=== PATIENT | male | born 1935 | race Hispanic/Latino ===

== ENCOUNTER 2016-09-04 22:46 | Observation (INO) | payer MEDICARE, OTHER ==
[2016-09-04 22:47] VITALS: BMI 25.4
[2016-09-04] MEDS ORDERED: Aspirin 325 mg EC Tablets PO STA (23:28)
--- NOTE | 2016-09-04 23:30 | C.PDOC ---
History Of Present Illness 81 year old male was brought to the ED by EMS with complaints of chest pain, SOB , and one episode of vomiting. Patient describes, through his neighbor's translation, that he felt fine all day but prior to arrival he bent to grab something in the refrigerator and developed a sudden feeling as though a ball was in the left side of his chest leading to a feeling of pressure in his chest. Patient states symptoms resolved upon arrival and has never had similar symptoms before. He denies any cough, fever, or any other complaints at this time. 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 denies: Diaphoresis, Syncope Recent travel outside of the [place]: No Past Medical History Reviewed: Historical Data, Nursing Documentation, Vital Signs Vital Signs: Last Vital Signs Temp 97.9 F 09/04/16 22:57 Pulse 68 09/05/16 03:21 Resp 16 09/05/16 03:21 BP 145/72 09/05/16 03:21 Pulse Ox 98 09/05/16 03:21 - Medical History PMH: Arthritis, Asthma, Fractures (LEFT LEG) - [facility] Procedures COLONOSCOPY (08/01/14) Family History: States: No Known Family Hx - Social History Hx Alcohol Use: Yes Hx Substance Use: No Review Of Systems Constitutional: Negative for: Fever, Chills, Sweats Eyes: Negative for: Vision Change Cardiovascular: Positive for: Chest Pain. Negative for: Palpitations Respiratory: Positive for: Shortness of Breath. Negative for: Cough Gastrointestinal: Positive for: Vomiting. Negative for: Nausea, Abdominal Pain , Diarrhea Neurological: Negative for: Headache, Dizziness Physical Exam - Physical Exam Appears: Non-toxic, No Acute Distress Skin: Warm, Dry Head: Atraumatic Eye(s): bilateral: PERRL, EOMI Oral Mucosa: Moist Neck: Supple Chest: Symmetrical, No Deformity Cardiovascular: Rhythm Regular Respiratory: No Rales, No Rhonchi, No Stridor, No Wheezing Gastrointestinal/Abdominal: Soft, No Tenderness, No Distention, No Guarding, No Rebound Extremity: Normal ROM, No Tenderness Neurological/Psych: Oriented x3, Normal Speech, Normal Cognition ED Course And Treatment - Laboratory Results Result Diagrams: 09/04/16 23:35 09/04/16 23:35 ECG: Interpreted By Me ECG Rhythm: Sinus Rhythm, R BBB O2 Sat by Pulse Oximetry: 99 (room air ) - Radiology CXR: Interpreted by Me, Viewed By Me CXR Interpretation: No: Infiltrates Medical Decision Making Medical Decision Making: Pt treated with asa, and continued pain free in the ED In view of symptoms age pt will need observation Discussed with dr Garsia who agrees with plan Disposition - Disposition Disposition: HOSPITALIZED Disposition Time: 00:47 Condition: FAIR - Clinical Impression Clinical Impression: Chest pain - Scribe Statement The provider has reviewed the documentation as recorded by the Scribe Ammy Dillard All medical record entries made by the Scribe were at my direction and personally dictated by me. I have reviewed the chart and agree that the record accurately reflects my personal performance of the history, physical exam, medical decision making, and the department course for this patient. I have also personally directed, reviewed, and agree with the discharge instructions and disposition.
[2016-09-04] MEDS ORDERED: Aspirin 325 mg EC Tablets PO ONE (23:33)
[2016-09-04 23:38] LABS: BASO # 0.1 K/uL (0.0-0.2); BASO % 2.1 % (0.0-2.0); EOS # 0.4 K/uL (0.0-0.7); HEMATOCRIT 34.7 % (35.0-51.0); LYMPH # 1.4 K/uL (1.0-4.3); LYMPH % 34.2 % (20.0-40.0); MEAN CORPUSCULAR HEMOGLOBIN 30.5 pg (27.0-31.0); MEAN CORPUSCULAR HGB CONC 33.1 g/dL (33.0-37.0); MEAN PLATELET VOLUME 7.7 fL (7.2-11.7); MONO # 0.5 K/uL (0.0-0.8); MONO % 12.2 % (0.0-10.0); NRBC % 0.1 % (0.0-2.0); RED CELL DISTRIBUTION WIDTH 14.9 % (11.5-14.5)
[2016-09-04 23:48] LABS: CHLORIDE 99 mmol/L (98-107); SODIUM 137 mmol/L (132-148)
[2016-09-04 23:49] LABS: POTASSIUM 3.9 mmol/L (3.6-5.2)
[2016-09-04 23:51] LABS: ALB/GLOB RATIO 1.2 (1.0-2.1); ALKALINE PHOSPHATASE 73 U/L (38-126); ALT/SGPT 27 U/L (21-72); AST/SGOT 32 U/L (17-59); BILIRUBIN,TOTAL 1.2 mg/dL (0.2-1.3); BLOOD UREA NITROGEN 16 mg/dL (9-20); CARBON DIOXIDE 29 mmol/L (22-30); GFR AFRICAN-AMERICAN > 60; GLUCOSE,RANDOM 97 mg/dL (75-110)
--- NOTE | 2016-09-05 01:26 | CP.PCM.HP ---
<Vargas Falcon - Last Filed: 09/05/16 01:22> History of Present Illness - History of Present Illness History of Present Illness: This is a 81 yo male with past medical hx of HTN presenting with chest pain x 3 hrs. pain began at 1020 pm. pt was in the refrigerator fishing for something. He got on his knees and was looking inside for something when all of a sudden started developing chest pain. He has never felt this way before. He also developed some shortness of breath. He describes the sensation as "gripping." The chest pain had resolved at time of evaluation. It lasted 15 minutes in a very strong intensity then gradually faded away. Nothing made it better or worse. He took no meds for it at home. He denies fevers, chills, vomiting, diarrhea. He does report non productive cough. He denies hematuria, bloody BMs. PMH: HTN, prostatitis PSH: prostate sx, unknown leg surgery Allergies: NKDA FH: Father- - [place] Social hx: denies smoking, drinking, drug use. Born in [facility]. Lives with , daughter, grandson. Present on Admission - Present on Admission Any Indicators Present on Admission: No History of DVT/PE: No History of Uncontrolled Diabetes: No Urinary Catheter: No Decubitus Ulcer Present: No Review of Systems - Review of Systems All systems: reviewed and no additional remarkable complaints except Review of Systems: Negative except as per HPI. Past Patient History - Infectious Disease Hx of Infectious Diseases: None - Tetanus Immunizations Tetanus Immunization: Unknown - Past Medical History & Family History Past Medical History?: Yes Pertinent Family History: FH of [place] - Past Social History Smoking Status: Never Smoked Chewing Tobacco Use: No Cigar Use: No Alcohol: None Drugs: Denies Home Situation {Lives}: With Family Domestic Violence: Negative - PULMONARY Hx Asthma: Yes - HEENT Hx HEENT Problems: Yes (GLASSES) Hx Cataracts: Yes - MUSCULOSKELETAL/RHEUMATOLOGICAL Hx Arthritis: Yes Hx Fractures: Yes (LEFT LEG) - GENITOURINARY/GYNECOLOGICAL Hx Genitourinary Disorders: Yes Hx Prostate Problems: Yes (BPH/RETENTION) - PSYCHIATRIC Hx Substance Use: No - SURGICAL HISTORY Hx Surgeries: Yes Hx Open Reduction Internal Fixation: Yes (FX LEFT LEG AT AGE 14) Other/Comment: GREENLIGHT TUR - ANESTHESIA Hx Anesthesia: Yes Hx Anesthesia Reactions: No Hx Malignant Hyperthermia: No Meds Allergies/Adverse Reactions: Allergies Allergy/AdvReac Type Severity Reaction Status Date / Time No Known Allergies Allergy Verified 09/11/15 07:51 Physical Exam - Constitutional Appears: Non-toxic, No Acute Distress - Head Exam Head Exam: ATRAUMATIC, NORMAL INSPECTION, NORMOCEPHALIC - Eye Exam Eye Exam: EOMI - ENT Exam ENT Exam: Mucous Membranes Moist - Neck Exam Neck exam: Positive for: Full Rom, Normal Inspection - Respiratory Exam Respiratory Exam: Decreased Breath Sounds. absent: Respiratory Distress - Cardiovascular Exam Cardiovascular Exam: REGULAR RHYTHM, +S1, +S2 - GI/Abdominal Exam GI & Abdominal Exam: Normal Bowel Sounds, Soft. absent: Tenderness - Extremities Exam Extremities exam: Positive for: full ROM, normal inspection - Back Exam Back exam: NORMAL INSPECTION - Neurological Exam Neurological exam: Alert, Oriented x3 - Psychiatric Exam Psychiatric exam: Normal Affect, Normal Mood - Skin Skin Exam: Dry, Intact, Normal Color, Warm Results - Vital Signs Recent Vital Signs: Last Vital Signs Temp 97.9 F 09/04/16 22:57 Pulse 72 09/04/16 22:57 Resp 20 09/04/16 22:57 BP 153/80 H 09/04/16 22:57 Pulse Ox 99 09/05/16 01:11 - Labs Result Diagrams: 09/04/16 23:35 09/04/16 23:35 Labs: Laboratory Results - last 24 hr 09/04/16 09/04/16 23:35 23:35 WBC 4.0 L RBC 3.77 L Hgb 11.5 L Hct 34.7 L MCV 92.0 MCH 30.5 MCHC 33.1 RDW 14.9 H Plt Count 215 MPV 7.7 Neut % (Auto) 42.5 L Lymph % (Auto) 34.2 [place] % (Auto) 12.2 H Eos % (Auto) 9.0 H Baso % (Auto) 2.1 H Neut # 1.7 L Lymph # 1.4 [place] # 0.5 Eos # 0.4 Baso # 0.1 Sodium 137 Potassium 3.9 Chloride 99 Carbon Dioxide 29 Anion Gap 14 BUN 16 Creatinine 0.9 Est GFR ( Amer) > 60 Est GFR (Non-Af Amer) > 60 Random Glucose 97 Calcium 8.0 L Total Bilirubin 1.2 AST 32 ALT 27 Alkaline Phosphatase 73 Troponin I < 0.0120 Total Protein 7.0 Albumin 3.8 Globulin 3.1 Albumin/Globulin Ratio 1.2 Assessment & Plan - Assessment and Plan (Free Text) Assessment: This is a 81 yo male with past medical hx of HTN and prostatitis presenting with chest pain 1. Chest pain, rule out ACS -EKG shows NSR, right bundle branch block -cardiology. Dr. Underwood. recs appreciated. -trops x 3 -low dose lopressor 25 mg PO BID -crestor 5 mg PO HS -asa 81 mg PO HS -HGB a1C -Lipid panel -echo pending 2. Hx of HTN -will start low dose betablocker -echo pending 3. hx of prostatitis -continue to monitor 4. GI/DVT ppx -protonix daily -SCDs discussed with hospitalist <Antolin Rubalcava - Last Filed: 09/05/16 06:40> Results - Vital Signs Recent Vital Signs: Last Vital Signs Temp 97.9 F 09/04/16 22:57 Pulse 68 09/05/16 03:21 Resp 16 09/05/16 03:21 BP 145/72 09/05/16 03:21 Pulse Ox 99 09/05/16 03:48 - Labs Result Diagrams: 09/04/16 23:35 09/04/16 23:35 Labs: Laboratory Results - last 24 hr 09/05/16 09/05/16 04:37 04:37 Hemoglobin A1c 5.8 Troponin I < 0.0120 Triglycerides 91 Cholesterol 180 LDL Cholesterol Direct 133 H HDL Cholesterol 31 Assessment & Plan - Date & Time Date: 09/05/16 (I have seen and examined the patient. I agree with the findings and plan of care as documented by Dr. Falcon. Patient with chest pain. History of hypertension. ROMIx3 with EKG. Aspirin and Statin. Metoprolol. 2D Echo. Consult to Cardio. Monitor on tele for acute changes. Check for additional CAD risk factors.) Time: 06:38 Attending/Attestation - Attestation I have personally seen and examined this patient.: Yes I have fully participated in the care of the patient.: Yes I have reviewed all pertinent clinical information: Yes
[2016-09-05 03:22] VITALS: RESP 16
[2016-09-05 06:09] LABS: CHOLESTEROL 180 mg/dL (0-199)
[2016-09-05 08:49] VITALS: BP 149/71
--- NOTE | 2016-09-05 09:00 | RAD ---
PROCEDURE: CHEST RADIOGRAPH, 1 VIEW. Portable semi erect study 23:34. HISTORY: chest pain COMPARISON: None available. FINDINGS: LUNGS: Clear. PLEURA: No pneumothorax or pleural fluid seen. CARDIOVASCULAR: No radiographic findings to suggest acute or significant cardiovascular disease. All OSSEOUS STRUCTURES: No significant abnormalities. VISUALIZED UPPER ABDOMEN: Normal. OTHER FINDINGS: None. IMPRESSION: No active disease. Concordant results with the preliminary interpretation rendered by the emergency department physician procedure.
--- NOTE | 2016-09-05 11:22 | CP.PCM.PN ---
<Shira Abreu - Last Filed: 09/05/16 13:19> Subjective - Date & Time of Evaluation Date of Evaluation: 09/05/16 Time of Evaluation: 08:00 - Subjective Subjective: Medicine Progress Note- Dr. Wells's Service: Patient seen and examined at bedside this AM. Patient reports left chest pain has resolved since last night. As per patient he was well last night. He became SOB and developed "asphyxiating" chest pain when he bent down to get something in the refrigerator. Pain was 10/[address] On his way to the hospital he began to feel nauseous and developed a cough. No diaphoresis, no dysuria, hematuria, feves, chills, palpitations. Patient sees Dr. Rust as outpatient for BPH and urinary retention. Take Doxazosin 2 mg PO daily as per Dr. Rust. Objective - Vital Signs/Intake and Output Vital Signs (last 24 hours): Temp Pulse Resp BP Pulse Ox 97.9 F 68 16 149/71 99 09/04/16 22:57 09/05/16 03:21 09/05/16 03:21 09/05/16 08:48 09/05/16 03:48 - Medications Medications: Current Medications Aspirin (Aspirin Chewable) 81 mg PO DAILY [facility] Last Admin: 09/05/16 11:19 Dose: 81 mg Metoprolol Tartrate (Lopressor) 25 mg PO BIDCC [facility] Last Admin: 09/05/16 08:48 Dose: 25 mg Pantoprazole Sodium (Protonix Inj) 40 mg IVP DAILY [facility] Last Admin: 09/05/16 11:19 Dose: 40 mg Rosuvastatin Calcium (Crestor) 5 mg PO [facility] - Constitutional Appears: No Acute Distress - Head Exam Head Exam: NORMAL INSPECTION, NORMOCEPHALIC - Eye Exam Eye Exam: EOMI, Normal appearance - ENT Exam ENT Exam: Mucous Membranes Moist - Neck Exam Neck Exam: Full ROM - Respiratory Exam Respiratory Exam: Clear to Ausculation Bilateral, NORMAL BREATHING PATTERN - Cardiovascular Exam Cardiovascular Exam: REGULAR RHYTHM, +S1, +S2 - GI/Abdominal Exam GI & Abdominal Exam: Soft. absent: Distended, Tenderness - Extremities Exam Extremities Exam: Full ROM, Normal Inspection - Back Exam Back Exam: NORMAL INSPECTION - Neurological Exam Neurological Exam: Alert, Awake, Oriented x3 - Psychiatric Exam Psychiatric exam: Normal Affect, Normal Mood - Skin Skin Exam: Dry, Normal Color, Warm Assessment and Plan (1) Chest pain Assessment & Plan: EKG on admission 09/04/16 showed NSR 69 bpm, RBBB. EKG (repeat 09/05/16) showed Sinus Mike 55 bpm, RBBB. Cardiology consulted- Dr. Underwood- help appreciated. Trops negative x 3 * D/C Lopressor 25 mg PO BID for HR 55-60. * Crestor 5 mg PO HS * ASA 81 mg PO daily Hgb A1C: 5.8 FLP: T, Chol 180, LDL 133, HDL 31. F/U 2D ECHO Status: Acute (2) BPH (benign prostatic hyperplasia) Assessment & Plan: Resume home med Cardura 2 mg PO daily. Hx of urinary retention as per chart. Follows with Dr. Rust as outpatient. Status: Acute (3) HTN (hypertension) Assessment & Plan: As per chart. However, BP stable off meds. Will stop BB for HR of 55-60. Patient currently on Cardura for BPH. Will add medications as needed. Status: Acute (4) Hyperlipemia Assessment & Plan: FLP: T, Chol 180, LDL 133, HDL 31. * Crestor 5 mg PO HS Status: Acute (5) Prophylactic measure Assessment & Plan: Protonic 10 mg IVP daily Lovenox 40 mg SC daily SCDs Status: Acute <Rafael Wells - Last Filed: 09/05/16 14:42> Objective - Vital Signs/Intake and Output Vital Signs (last 24 hours): Temp Pulse Resp BP Pulse Ox 97.5 F L 63 16 149/71 95 09/05/16 07:30 09/05/16 07:30 09/05/16 07:30 09/05/16 08:48 09/05/16 07:30 - Medications Medications: Current Medications Aspirin (Aspirin Chewable) 81 mg PO DAILY [facility] Last Admin: 09/05/16 11:19 Dose: 81 mg Doxazosin Mesylate (Cardura) 2 mg PO DAILY [facility] Last Admin: 09/05/16 14:12 Dose: 2 mg Enoxaparin Sodium (Lovenox) 40 mg SC DAILY [facility] Pantoprazole Sodium (Protonix Inj) 40 mg IVP DAILY [facility] Last Admin: 09/05/16 11:19 Dose: 40 mg Pneumococcal Polyvalent Vaccine (Pneumovax 23 Vaccine) 0.5 ml IM .ONCE ONE Stop: 09/06/16 10:01 Rosuvastatin Calcium (Crestor) 5 mg PO [facility] Attending/Attestation - Attestation I have personally seen and examined this patient.: Yes I have fully participated in the care of the patient.: Yes I have reviewed all pertinent clinical information, including history, physical exam and plan: Yes Notes (Text): 09/05/16 14:41 Patient was seen and examined at bedside. Denies any chest pain at this time Troponins negative. Echo pending. Follow up cardiogy recommendations I reviewed the chart, labs imaging studies and netsuite consultant notes. I agree with above history and physical and assessment/plan by the resident.
[2016-09-05 12:56] VITALS: TEMP 97.5; O2SAT 95
--- NOTE | 2016-09-05 16:30 | CP.PCM.CON ---
History of Present Illness - History of Present Illness History of Present Illness: Elderly malw ith history of hypertension who came last night with cheat pain. At this time resting comfortably without any chest pain or shortness of breath. Past Patient History - Infectious Disease Hx of Infectious Diseases: None - Tetanus Immunizations Tetanus Immunization: Unknown - Past Medical History & Family History Past Medical History?: Yes - Past Social History Smoking Status: Never Smoked - CARDIAC Hx Cardiac Disorders: Yes Hx Hypertension: Yes - PULMONARY Hx Asthma: Yes - NEUROLOGICAL Hx Neurological Disorder: No - HEENT Hx HEENT Problems: Yes (GLASSES) Hx Cataracts: Yes - RENAL Hx Chronic Kidney Disease: No - ENDOCRINE/METABOLIC Hx Endocrine Disorders: No - HEMATOLOGICAL/ONCOLOGICAL Hx Blood Disorders: No - INTEGUMENTARY Hx Dermatological Problems: No - MUSCULOSKELETAL/RHEUMATOLOGICAL Hx Arthritis: Yes Hx Falls: No Hx Fractures: Yes (LEFT LEG) - GASTROINTESTINAL Hx Gastrointestinal Disorders: No - GENITOURINARY/GYNECOLOGICAL Hx Genitourinary Disorders: Yes Hx Prostate Problems: Yes (BPH/RETENTION) - PSYCHIATRIC Hx Psychophysiologic Disorder: No Hx Substance Use: No - SURGICAL HISTORY Hx Surgeries: Yes Hx Open Reduction Internal Fixation: Yes (FX LEFT LEG AT AGE 14) Other/Comment: GREENLIGHT TUR - ANESTHESIA Hx Anesthesia: Yes Hx Anesthesia Reactions: No Hx Malignant Hyperthermia: No Meds Allergies/Adverse Reactions: Allergies Allergy/AdvReac Type Severity Reaction Status Date / Time No Known Allergies Allergy Verified 09/11/15 07:51 - Medications Medications: Current Medications Aspirin (Aspirin Chewable) 81 mg PO DAILY [facility] Last Admin: 09/05/16 11:19 Dose: 81 mg Doxazosin Mesylate (Cardura) 2 mg PO DAILY [facility] Last Admin: 09/05/16 14:12 Dose: 2 mg Enoxaparin Sodium (Lovenox) 40 mg SC DAILY [facility] Pantoprazole Sodium (Protonix Inj) 40 mg IVP DAILY [facility] Last Admin: 09/05/16 11:19 Dose: 40 mg Pneumococcal Polyvalent Vaccine (Pneumovax 23 Vaccine) 0.5 ml IM .ONCE ONE Stop: 09/06/16 10:01 Rosuvastatin Calcium (Crestor) 5 mg PO [facility] Physical Exam - Head Exam Head Exam: NORMOCEPHALIC - Neck Exam Neck exam: Positive for: Normal Inspection - Cardiovascular Exam Cardiovascular Exam: REGULAR RHYTHM - Neurological Exam Neurological exam: Oriented x3 Results - Vital Signs Recent Vital Signs: Last Vital Signs Temp 97.5 F L 09/05/16 07:30 Pulse 63 09/05/16 07:30 Resp 16 09/05/16 07:30 BP 149/71 09/05/16 08:48 Pulse Ox 95 09/05/16 07:30 - Labs Result Diagrams: 09/04/16 23:35 09/04/16 23:35 Labs: Laboratory Results - last 24 hr 09/05/16 09/05/16 09/05/16 04:37 04:37 11:44 Hemoglobin A1c 5.8 Troponin I < 0.0120 < 0.0120 Triglycerides 91 Cholesterol 180 LDL Cholesterol Direct 133 H HDL Cholesterol 31 - Impressions Impression: Sinus Bradycardia with RBBB. Assessment & Plan (1) Chest pain Assessment and Plan: Resolved and etiology unclear. Work-up negative so and rest of the cardiac work- up can be done as out patient. Status: Acute (2) HTN (hypertension) Assessment and Plan: Blood pressure is controlled and may use STACY-I or Norvasc if needed. Status: Acute (3) Hyperlipemia Assessment and Plan: Continue lipid lowering agents. Status: Acute
[2016-09-05 17:12] VITALS: PULSE 53
--- NOTE | 2016-09-05 17:36 | CP.PCM.DIS ---
<Shira Abreu - Last Filed: 09/05/16 20:37> Provider - Provider Date of Admission: 09/05/16 00:46 Attending physician: Justin Sanabria DO Primary care physician: none Consults: Dr. Underwood (cardio) Time Spent in preparation of Discharge (in minutes): 45 Diagnosis - Discharge Diagnosis (1) Chest pain Status: Acute (2) BPH (benign prostatic hyperplasia) Status: Acute (3) HTN (hypertension) Status: Acute (4) Hyperlipemia Status: Acute Hospital Course - Lab Results Lab Results: Most Recent Lab Values WBC 4.0 K/uL (4.8-10.8) L 09/04/16 23:35 RBC 3.77 Mil/uL (4.40-5.90) L 09/04/16 23:35 Hgb 11.5 g/dL (12.0-18.0) L 09/04/16 23:35 Hct 34.7 % (35.0-51.0) L 09/04/16 23:35 MCV 92.0 fL (80.0-94.0) 09/04/16 23:35 MCH 30.5 pg (27.0-31.0) 09/04/16 23:35 MCHC 33.1 g/dL (33.0-37.0) 09/04/16 23:35 RDW 14.9 % (11.5-14.5) H 09/04/16 23:35 Plt Count 215 K/uL (130-400) 09/04/16 23:35 MPV 7.7 fL (7.2-11.7) 09/04/16 23:35 Neut % (Auto) 42.5 % (50.0-75.0) L 09/04/16 23:35 Lymph % (Auto) 34.2 % (20.0-40.0) 09/04/16 23:35 [place] % (Auto) 12.2 % (0.0-10.0) H 09/04/16 23:35 Eos % (Auto) 9.0 % (0.0-4.0) H 09/04/16 23:35 Baso % (Auto) 2.1 % (0.0-2.0) H 09/04/16 23:35 Neut # 1.7 K/uL (1.8-7.0) L 09/04/16 23:35 Lymph # 1.4 K/uL (1.0-4.3) 09/04/16 23:35 [place] # 0.5 K/uL (0.0-0.8) 09/04/16 23:35 Eos # 0.4 K/uL (0.0-0.7) 09/04/16 23:35 Baso # 0.1 K/uL (0.0-0.2) 09/04/16 23:35 Sodium 137 mmol/L (132-148) 09/04/16 23:35 Potassium 3.9 mmol/L (3.6-5.2) 09/04/16 23:35 Chloride 99 mmol/L (98-107) 09/04/16 23:35 Carbon Dioxide 29 mmol/L (22-30) 09/04/16 23:35 Anion Gap 14 (10-20) 09/04/16 23:35 BUN 16 mg/dL (9-20) 09/04/16 23:35 Creatinine 0.9 MG/DL (0.8-1.5) 09/04/16 23:35 Est GFR ( Amer) > 60 09/04/16 23:35 Est GFR (Non-Af Amer) > 60 09/04/16 23:35 Random Glucose 97 mg/dL (75-110) 09/04/16 23:35 Hemoglobin A1c 5.8 % (4.2-6.5) 09/05/16 04:37 Calcium 8.0 mg/dl (8.6-10.4) L 09/04/16 23:35 Total Bilirubin 1.2 mg/dL (0.2-1.3) 09/04/16 23:35 AST 32 U/L (17-59) 09/04/16 23:35 ALT 27 U/L (21-72) 09/04/16 23:35 Alkaline Phosphatase 73 U/L (38-126) 09/04/16 23:35 Troponin I < 0.0120 ng/mL (0.00-0.120) 09/05/16 11:44 Total Protein 7.0 g/dL (6.3-8.3) 09/04/16 23:35 Albumin 3.8 g/dL (3.5-5.0) 09/04/16 23:35 Globulin 3.1 gm/dL (2.2-3.9) 09/04/16 23:35 Albumin/Globulin Ratio 1.2 (1.0-2.1) 09/04/16 23:35 Triglycerides 91 mg/dL (0-149) 09/05/16 04:37 Cholesterol 180 mg/dL (0-199) 09/05/16 04:37 LDL Cholesterol Direct 133 mg/dL (0-129) H 09/05/16 04:37 HDL Cholesterol 31 mg/dL (30-70) 09/05/16 04:37 - Hospital Course Hospital Course: This is a 81 yo male with past medical hx of HTN presenting with chest pain x 3 hrs. pain began at 1020 pm. pt was in the refrigerator fishing for something. He got on his knees and was looking inside for something when all of a sudden started developing chest pain. He has never felt this way before. He also developed some shortness of breath. He describes the sensation as "gripping." The chest pain had resolved at time of evaluation. It lasted 15 minutes in a very strong intensity then gradually faded away. Nothing made it better or worse. He took no meds for it at home. He denies fevers, chills, vomiting, diarrhea. He does report non productive cough. He denies hematuria, bloody BMs. EKG on admission 09/04/16 showed NSR 69 bpm, RBBB. EKG (repeat 09/05/16) showed Sinus Mike 55 bpm, RBBB. Trops negative x 3 Cardiology consulted- Dr. Underwood. Patient started on ASA and statin. Home med Cardura 2 mg PO was restarted daily. Patient with Hx of urinary retention as per chart. Follows with Dr. Rust as outpatient. Blood work revealed Hgb A1C: 5.8, FLP: T, Chol 180, LDL 133, HDL 31. 2D ECHO done and reviewed by Dr. Underwood. As per Dr. Underwood, cardiac work-up negative. Rest of the cardiac work-up can be done as out patient. Patient cleared for discharge to home with low dose statin. This is just a summary of the hospital course. Please see chart for full details. Discharge Exam - Head Exam Head Exam: NORMOCEPHALIC - Eye Exam Eye Exam: EOMI, Normal appearance - Respiratory Exam Respiratory Exam: Clear to PA & Lateral, UNREMARKABLE - Cardiovascular Exam Cardiovascular Exam: REGULAR RHYTHM, +S1, +S2 - GI/Abdominal Exam GI & Abdominal Exam: Normal Bowel Sounds, Soft. absent: Distended, Tenderness - Extremities Exam Extremities exam: full ROM, normal inspection - Neurological Exam Neurological exam: Alert, Oriented x3 - Psychiatric Exam Psychiatric exam: Normal Affect, Normal Mood - Skin Skin Exam: Normal Color, Warm Discharge Plan - Discharge Medications Prescriptions: Simvastatin 40 mg PO DAILY #30 tablet - Follow Up Plan Condition: FAIR Disposition: HOME/ ROUTINE Instructions: Angina (DC), Chest Pain (DC), Hypertension (DC) Additional Instructions: Please discharge patient to home as per Dr. Wells. Please take the following new medications as prescribed: Simvastatin 40 mg by mouth daily. Please resume all other home medications as prescribed. Follow up with caridologist Dr. Underwood on TuesdaySeptember [address] Underwood. Return to the emergency room if symptoms return. Instructions explained to patient and family who understand and agree. Referrals: Fabi Underwood MD [Staff Provider] - <Rafael Wells - Last Filed: 09/13/16 16:10> Provider - Provider Date of Admission: 09/05/16 00:46 Attending physician: Justin Sanabria DO Hospital Course - Lab Results Lab Results: Most Recent Lab Values WBC 4.0 K/uL (4.8-10.8) L 09/04/16 23:35 RBC 3.77 Mil/uL (4.40-5.90) L 09/04/16 23:35 Hgb 11.5 g/dL (12.0-18.0) L 09/04/16 23:35 Hct 34.7 % (35.0-51.0) L 09/04/16 23:35 MCV 92.0 fL (80.0-94.0) 09/04/16 23:35 MCH 30.5 pg (27.0-31.0) 09/04/16 23:35 MCHC 33.1 g/dL (33.0-37.0) 09/04/16 23:35 RDW 14.9 % (11.5-14.5) H 09/04/16 23:35 Plt Count 215 K/uL (130-400) 09/04/16 23:35 MPV 7.7 fL (7.2-11.7) 09/04/16 23:35 Neut % (Auto) 42.5 % (50.0-75.0) L 09/04/16 23:35 Lymph % (Auto) 34.2 % (20.0-40.0) 09/04/16 23:35 [place] % (Auto) 12.2 % (0.0-10.0) H 09/04/16 23:35 Eos % (Auto) 9.0 % (0.0-4.0) H 09/04/16 23:35 Baso % (Auto) 2.1 % (0.0-2.0) H 09/04/16 23:35 Neut # 1.7 K/uL (1.8-7.0) L 09/04/16 23:35 Lymph # 1.4 K/uL (1.0-4.3) 09/04/16 23:35 [place] # 0.5 K/uL (0.0-0.8) 09/04/16 23:35 Eos # 0.4 K/uL (0.0-0.7) 09/04/16 23:35 Baso # 0.1 K/uL (0.0-0.2) 09/04/16 23:35 Sodium 137 mmol/L (132-148) 09/04/16 23:35 Potassium 3.9 mmol/L (3.6-5.2) 09/04/16 23:35 Chloride 99 mmol/L (98-107) 09/04/16 23:35 Carbon Dioxide 29 mmol/L (22-30) 09/04/16 23:35 Anion Gap 14 (10-20) 09/04/16 23:35 BUN 16 mg/dL (9-20) 09/04/16 23:35 Creatinine 0.9 MG/DL (0.8-1.5) 09/04/16 23:35 Est GFR ( Amer) > 60 09/04/16 23:35 Est GFR (Non-Af Amer) > 60 09/04/16 23:35 Random Glucose 97 mg/dL (75-110) 09/04/16 23:35 Hemoglobin A1c 5.8 % (4.2-6.5) 09/05/16 04:37 Calcium 8.0 mg/dl (8.6-10.4) L 09/04/16 23:35 Total Bilirubin 1.2 mg/dL (0.2-1.3) 09/04/16 23:35 AST 32 U/L (17-59) 09/04/16 23:35 ALT 27 U/L (21-72) 09/04/16 23:35 Alkaline Phosphatase 73 U/L (38-126) 09/04/16 23:35 Troponin I < 0.0120 ng/mL (0.00-0.120) 09/05/16 11:44 Total Protein 7.0 g/dL (6.3-8.3) 09/04/16 23:35 Albumin 3.8 g/dL (3.5-5.0) 09/04/16 23:35 Globulin 3.1 gm/dL (2.2-3.9) 09/04/16 23:35 Albumin/Globulin Ratio 1.2 (1.0-2.1) 09/04/16 23:35 Triglycerides 91 mg/dL (0-149) 09/05/16 04:37 Cholesterol 180 mg/dL (0-199) 09/05/16 04:37 LDL Cholesterol Direct 133 mg/dL (0-129) H 09/05/16 04:37 HDL Cholesterol 31 mg/dL (30-70) 09/05/16 04:37 Attending/Attestation - Attestation I have personally seen and examined this patient.: Yes I have fully participated in the care of the patient.: Yes I have reviewed all pertinent clinical information, including history, physical exam and plan: Yes Notes (Text): 09/13/16 16:10 Patient was seen and examined at bedside with the resident This is a late computer entry Patient is clear for discharge by cardiology We will discharge patient home I agree with the above discharge note by the resident.
[2016-09-06] MEDS ORDERED: Enoxaparin 40 mg Syringe SC SCH (10:00)
[2016-09-06] MEDS ORDERED: Pneumococcal 23-Valent Vaccine IM ONE (10:00)
--- NOTE | 2016-09-07 12:10 | CARD ---
APPROVED REPORT EKG Measurement Heart [id number] [place] [id number] <Conclusion> Normal sinus rhythm Right bundle branch block Abnormal ECG
--- NOTE | 2016-09-08 08:13 | CARD ---
APPROVED REPORT EKG Measurement Heart [id number] [place] [id number] <Conclusion> Sinus bradycardia Right bundle branch block Abnormal ECG
--- NOTE | 2016-09-08 17:25 | CARD ---
APPROVED REPORT EKG Measurement Heart [id number] MD [id number] <Conclusion> Sinus bradycardia Right bundle branch block Abnormal ECG
== END 2016-09-05 18:00 | disposition home or self-care (01) ==
LOC: C.ER 22:46 → C.9E 09-05 00:46 → C.5T 09-05 06:53
PROVIDERS: ADMIT Hospitalist; ATTEND Hospitalist
DX: R07.9 Chest pain, unspecified (principal); I10 Essential (primary) hypertension; E78.5 Hyperlipidemia, unspecified; J45.909 Unspecified asthma, uncomplicated; N40.1 Benign prostatic hyperplasia with lower urinary tract symptoms; R33.8 Other retention of urine
CPT/HCPCS: 71010; 80053; 80061; 83036; 84484; 85025; 99284; C9113; G0378